=== PATIENT | male | born 1950 | race Caucasian/White ===

== ENCOUNTER 2023-08-06 18:14 | Inpatient (IN) | payer MEDICARE, OTHER, SELFPAY ==
[2023-08-06] VITALS (11 sets, daily range): BP systolic 126–200; BP diastolic 77–123; BMI 35.4
[2023-08-06] MEDS: DUONEB 3 ML INH (15:43)
[2023-08-06] MEDS: VENTOLIN NEBULES 7.5 MG INH (15:50)
[2023-08-06] MEDS: DECADRON 10 MG IV (15:50)
[2023-08-06 15:53] LABS: % Basophils 0.4 % (0-2); % Eosinophils 1.2 % (0-6); % Immature Granulocytes 0.5 % (0-0.5); % Lymphocytes 9.5 % (20.5-51.1); % Monocytes 7.9 % (1.7-9.3); % Neutrophils 80.5 % (42.2-75.2); Absolute Basophils 0.1 10^3/uL (0-0.2); Absolute Eosinophils 0.2 10^3/uL (0-0.7); Absolute Immature Granulocytes 0.1 10^3/uL (0-0.05); Absolute Lymphocytes 1.5 10^3/uL (1.2-3.4); Absolute Monocytes 1.3 10^3/uL (0.1-0.6); Absolute Neutrophils 13.1 10^3/uL (1.4-6.5); Hematocrit 48.5 % (39.0-52.0); Hemoglobin 16.4 g/dL (13.0-18.0); Mean Corp Hgb Conc. 33.8 g/dL (33.0-37.0); Mean Corpuscular Volume 88.8 fL (80.0-94.0); Mean Platelet Volume 10.3 fL (7.4-10.4); Nucleated Red Blood Cells % 0 % (-); Platelet Count 247 10^3/uL (130-400); Red Blood Cell Count 5.46 10^6/uL (4.70-6.10); Red Cell Dist. Width 13.5 % (11.5-14.5); White Blood Cell Count 16.3 10^3/uL (4.8-10.8)
--- NOTE | 2023-08-06 16:07 | ED.GENMED ---
History of Present Illness
General
Chief Complaint: Breathing Problem
Source: patient and spouse (ex)
Time Seen by Provider: 08/06/23 15:38
Travel History
Have you had any contact with someone who has COVID-19?: No
Do you have any symptoms of coronavirus? Fever > 100 degrees, chills, cough, shortness of breath, sore throat, loss of taste or smell, muscle aches, or headache?: No
History of Present Illness
History of Present Illness:
72-year-old male shortness of breath cough congestion. Progressive over 3 days. No fever. No pleuritic pain. Symptoms are moderate in nature.
Past History
Past History
ED Past Medical History: Arrthythmia and HTN
ED Past Surgical History: Tonsilectomy and Urological
Review of Systems
Review of Systems
All Other Systems: Not applicable
Constitutional: Denies fever
Respiratory: Reports cough; Denies hemoptysis
Cardiac: Denies chest pain or syncope
Phy Exam
Physical Exam
Physical Exam:
GENERAL: Alert and oriented. Moderate respiratory distress
EYE: Orbits normal.
NECK: Supple, no significant adenopathy.
ENT: Pharynx without erythema
CARDIAC: Irregular irregular. Tachycardic
LUNGS: Moderately breathless with speaking. Coarse cough at times. Diffuse expiratory wheezing and rhonchi. Poor airflow.
ABDOMEN: Soft, without focal tenderness or distention
NEUROLOGICAL: Alert and oriented , grossly non-focal
SKIN: Warm and dry, no rash or lesion, no discoloration, skin intact.
MUSCULOSKELETAL: No edema,no deformity.Good color
PSYCH: Normal and appropriate interaction.
Scores
Heart Failure Risk
Heart Failure Risk Score: Not Applicable
Course
Orders/Labs/Results
Orders:
Orders
08/06/23 Lunch
Cholesterol Lowering
At Your Request: Full Participation
Cholesterol Lowering: Sodium, 2 Gram
08/06/23 15:18
Electrocardiogram (*1) Urgent
Reason for Study: Shortness of Breath
EKG- Treatment ONCE
08/06/23 15:38
CXR Port [CR Chest Portable - 1 View] Urgent
Comment:
Reason For Exam: sob
Reason Study Needs to be Portable: Unable to Transport
08/06/23 15:42
BNP [NT-proBNP] Urgent
Complete Blood Count/With Diff Urgent
Comprehensive Metabolic Panel Urgent
Lipase Urgent
PTT Urgent
Troponin I Urgent
Ipratropium/Albuterol Sulfate [Duoneb] 3 ml .ROUTE .STK-MED ONE
08/06/23 15:43
Ipratropium/Albuterol Sulfate [Duoneb] 3 ml INH R NOW ONE
08/06/23 15:44
Cardiac Monitoring- Treatment ONCE
IV Insert/Care/Rem.- Treatment PRN
Albuterol Sulfate [Ventolin Nebules] 7.5 mg INH R NOW STA
Dexamethasone Sod Phosphate [Decadron] 10 mg IV NOW STA
O2 Therapy [RESP] Stat
Titrate/Wean O2 to maintain O2 sat greater than (%): 94
08/06/23 17:19
COVID-19 Antigen Urgent
Source: Nasal Swab
Blood Culture Q30M
TRES Source: Blood/Venous
Specimen Description:
Blood Culture Q30M
TRES Source: Blood/Venous
Specimen Description:
Influenza A+B Rapid Molecular Urgent
TRES Source: Nasal Swab
Specimen Description:
08/06/23 17:55
Admit/Transfer Patient As Directed
Co-Sign Provider:
Level of Care: Inpatient admission
Assign to:: IMU- Intermediate Care
Physician / Group: power/hospitalist
Diagnosis: afib/bronchitis
Reason for Hospitalization: afib/bronchitis
Expected length of stay greater than two midnights?: Yes
ELOS- Estimated Length of Stay in days: 4
I certify the patient meets the requirements for IP care: Yes
08/06/23 17:56
Code Status As Directed
Resuscitation Status: Full Code
08/06/23 18:00
Diltiazem 125 mg/125 ml Nss [Cardizem] 125 mg in 125 ml IV PER PROTOCOL
Initial dose in mg/hr, then titrate:: 5
Titrate to keep:: Heart rate 80-100 bpm
Titrate by mg/hr:: 5 mg/hr
Frequency of titrations (minutes):: 15
Maximum dose in mg/hr:: 15
08/06/23 18:28
Procalcitonin Routine
PCT Algorithmm Indication: Respiratory
08/06/23 19:00
Flush (0.9% Sodium Chloride) [Flush (Nss)] See Dose Instructions IV PER PROTOCOL
08/06/23 20:26
Acetaminophen [Tylenol] 650 mg PO Q4HPRN PRN
Apixaban [Eliquis] 5 mg PO BID
Atorvastatin [Lipitor] 20 mg PO QPM
Levalbuterol [Xopenex 0.63 mg Inhalant Solution] 0.63 mg INH R TID
08/06/23 20:26
CARDIOLOGY CONSULT Routine
Consulting Provider: Laith Castle
Was physician already notified: Yes
Activity As Directed
Activity Level: Out of Bed-Early Mobility
Pneumatic Compression Sleeves As Directed
Type: Knee high
Vital Signs As Directed
Frequency: Per unit guidelines
Xopenex Reason for Use As Directed
Reason for ordering Xopenex instead of Albuterol: afib RVR
DX Deep Vein Thrombosis Video Routine
08/06/23 22:00
Lisinopril [Zestril] 20 mg PO HS
08/07/23 06:00
Basic Metabolic Panel IN AM
Complete Blood Count/With Diff IN AM
Magnesium IN AM
08/07/23 08:00
Dexamethasone Sod Phosphate [Decadron] 6 mg IV Q12H
Abnormal Lab Results
08/06/23
15:42
WBC 16.3 H 10^3/uL
(4.8-10.8)
Abs Immat Gran (auto) 0.1 H 10^3/uL
(0-0.05)
Absolute Neuts (auto) 13.1 H 10^3/uL
(1.4-6.5)
Absolute Monos (auto) 1.3 H 10^3/uL
(0.1-0.6)
Neutrophils % 80.5 H %
(42.2-75.2)
Lymphocytes % 9.5 L %
(20.5-51.1)
Glucose 103 H mg/dl
(70-99)
08/06/23 15:42
08/06/23 15:42
Vital Signs
Initial and Last Documented VS:
Initial Vital Signs
Temp Pulse Resp Pulse Ox
98.8 F 108 16 91
08/06/23 15:15 08/06/23 15:15 08/06/23 15:15 08/06/23 15:15
Last Documented Vital Signs
Temp Pulse Resp BP Pulse Ox
98.7 F 83 15 141/104 93
08/06/23 20:05 08/06/23 21:13 08/06/23 21:13 08/06/23 20:01 08/06/23 21:40
*Radiology
Radiology exam reviewed: preliminary read by ED provider (Negative) and radiology read reviewed (Negative)
*Pulse Oximetry
Patient hypoxic: yes
*Agricultural Economics Teacher Interpretation
Rate: tachycardiac
Interpretation: abnormal
Heart Rate: 110
Rhythm: a-fib
*Critical Care Note
Total Time (30-74mins, 75-104mins- exclusive of procedures): Not Applicable
Update Note
Update Note:
Patient rechecked multiple times. Significant improvement with nebulizers.
ED Attending Note
-
Portions of this chart may have been created with voice recognition software.� Occasional wrong word or��sound alike� substitutions may have occurred due to the inherent limitations of voice recognition software.
Discharge Plan
Departure
Patient Disposition: Admit
Date of Disposition: 08/06/23
Time of Disposition: 17:12
Presentation/result/management discussed w/ accepting MD/DO: Hospitalist
Discharge Problem:
Respiratory distress, Severe refractory bronchitis, Atrial fibrillation
Interventions
Interventions:
*Risk Screen - Suicide Last Done: 08/06/23 20:15
*General Assessment Last Done: 08/06/23 16:00
*Neglect/Abuse Screening Last Done: 08/06/23 20:00
ED- Fall Risk Assessment Last Done: 08/06/23 15:57
*ED COVID-19 Vaccine History Last Done: 08/06/23 20:04
*Nursing Disposition Last Done: 08/06/23 19:59
ED- Cardiac Assessment Last Done: 08/06/23 15:57
ED- Pulmonary Assessment Last Done: 08/06/23 15:57
Discharge Date and Time
Discharge Date/Time: 08/06/23 20:29
[2023-08-06 16:09] LABS: APTT 28.3 Sec (23.4-35.0)
[2023-08-06 16:10] LABS: ALT (SGPT) 30 U/L (0-50); AST (SGOT) 34 U/L (17-59); Albumin 4.9 g/dl (3.5-5.0); Alkaline Phosphatase 72 U/L (38-126); Blood Urea Nitrogen 16 mg/dl (9-20); Calcium 9.6 mg/dl (8.4-10.2); Carbon Dioxide 29 mmol/L (22-30); Chloride 105 mmol/L (98-107); Glucose 103 mg/dl (70-99); Lipase 87 U/L (23-300); Sodium 142 mmol/L (135-145); Total Bilirubin 1.3 mg/dl (0.2-1.3); Total Protein 8.1 g/dl (6.3-8.2); eGFR > 60.00
[2023-08-06 16:21] LABS: NT-proBNP 767 pg/ml; Troponin I < 0.012 ng/ml
[2023-08-06 17:46] LABS: COVID-19 Antigen Negative (Negative)
--- NOTE | 2023-08-06 18:00 | HPS.HSE ---
Family Physician
-
Family Physician: Cassie Gonzalez PA-C
Chief Complaint
-
sob
History of Present Illness
72 male who presented with shortness of breath. Patient said he started feeling short of breath starting yesterday. Stating of having a cough with white sputum. Denies any sick contact. Lives alone. States of severe shortness of breath into
urgent care. Was recommended to come to the hospital. Patient said usually develops upper respiratory tract infection and then subsequently afterwards gets bronchitis. Usually improves with steroids. Denies any fevers or chills. Denies any
chest pain. Denies any nausea or vomiting. Denies any palpitations. States for the atrial fibrillation he follows up with Dr. Grady Peraza.
Medical History
Past Medical History
Past Medical History: Reports Other
Additional Past Medical History:
BPH s/p TURP
Persistent Afib
Hx of tobacco abuse
HLD
Obesity
Past Surgical History: Reports Other
Additional Past Surgical History:
TURP
Social History
Tobacco: Former Smoker (Smoked 1PPD for 30 years. )
Alcohol: None
Personal: Single
Family History
Family History: Not pertinent
Allergies / Home Medications
Allergies reflects when Allergies were last updated in [facility].
Home Medications with original date entered in [facility]
Allergy/Medication List:
Medications on admission are unable to be verified or confirmed at this time.
Review of Systems
-
History Source: Patient
A 12 point ROS was completed and negative except as noted: Yes
Physical Exam
Vital Signs
Vital Signs
Temp Pulse Resp BP Pulse Ox
98.8 F 108 16 200/120 91
08/06/23 15:15 08/06/23 15:15 08/06/23 15:15 08/06/23 15:18 08/06/23 15:15
Physical Exam
General: Well Developed, Well Nourished and No Apparent Distress
HEENT: NormoCephalic, Moist mucous membranes, Atraumatic and Oxygen
Respiratory: Wheezes
Cardiac: S1/S2, Irregular Rhythm and Tachycardia; No Murmur or Rub
GI: Soft, Non Tender, Non Distended and Normal Bowel Sounds; No Organomegaly
Rectal: Deferred by Provider
Musculoskeletal: No Clubbing, No Cyanosis and No Edema
Skin: No Rash
Neuro: Awake, Alert, Oriented, AO x 3, No Motor Deficits and Nonfocal/grossly intact
Psych: Calm
Laboratory Results
-
08/06/23 15:42
08/06/23 15:42
Laboratory Results
APTT 28.3 Sec (23.4-35.0) 08/06/23 15:42
Total Bilirubin 1.3 mg/dl (0.2-1.3) 08/06/23 15:42
AST 34 U/L (17-59) 08/06/23 15:42
ALT 30 U/L (0-50) 08/06/23 15:42
Alkaline Phosphatase 72 U/L (38-126) 08/06/23 15:42
Troponin I < 0.012 ng/ml 08/06/23 15:42
Lipase 87 U/L (23-300) 08/06/23 15:42
Impression/Plan
-
#Acute hypoxic respiratory insufficiency likely secondary bronchitis in the setting of viral URI
#Unclear if diagnosis of COPD
#History of severe tobacco abuse
Start patient on levo albuterol the setting of atrial fibrillation with RVR
Start patient on Decadron in the morning
Chest x-ray noted
Check procalcitonin to rule out secondary infection
COVID negative
Influenza negative
#Leukocytosis ?reactive
trend for now
CXR negative
sputum sample
check procal- If elevated start Rocephin/azithromycin
#Persistent atrial fibrillation with rapid ventricular response
Start patient on Cardizem drip
Restart Eliquis
Awaiting med rec for anticoagulation confirmation
Cardiology consultation
#Primary hypertension elevated in the setting of steroids
#HTN urgency
Started on Cardizem infusion
Lisinopril 20mg now home dose. May need uptitration
Clarify metoprolol regimen
#BPH status post TURP
Follows with urology as outpatient Dr. Hall
Monitor urinary output
#Obesity due to excess calories
DVT ppx-Eliquis
IMU
I spent a total of 78 minutes with the patient or on the floor. More than 50% of this time involved counseling and coordination of care.
[2023-08-06] MEDS: CARDIZEM 125 IV (18:19)
[2023-08-06 19:16] LABS: Procalcitonin < 0.05 ng/ml (0.0-0.25)
[2023-08-06] MEDS: TYLENOL 650 MG PO (19:29)
[2023-08-06] MEDS: LIPITOR 20 MG PO (20:53)
[2023-08-06] MEDS: ELIQUIS 5 MG PO (20:53)
[2023-08-06] MEDS: MUCINEX 600 MG PO (20:53)
[2023-08-06] MEDS: XOPENEX 0.63 MG INHALANT SOLUTION 0.630000000000000004 MG INH (21:08)
[2023-08-06] MEDS: ZESTRIL 20 MG PO (22:28)
[2023-08-07] VITALS (16 sets, daily range): BP systolic 138–192; BP diastolic 55–173; BMI 32.9
[2023-08-07] MEDS: TESSALON PERLES 200 MG PO (02:27)
[2023-08-07 04:40] LABS: % Basophils 0.1 % (0-2); % Immature Granulocytes 0.3 % (0-0.5); % Lymphocytes 3.4 % (20.5-51.1); % Neutrophils 93.2 % (42.2-75.2); Absolute Lymphocytes 0.4 10^3/uL (1.2-3.4); Absolute Monocytes 0.4 10^3/uL (0.1-0.6); Absolute Neutrophils 11.1 10^3/uL (1.4-6.5); Hematocrit 44.9 % (39.0-52.0); Hemoglobin 14.8 g/dL (13.0-18.0); Mean Corpuscular Hgb 29.9 pg (27.0-31.0); Mean Corpuscular Volume 90.7 fL (80.0-94.0); Mean Platelet Volume 10.3 fL (7.4-10.4); Nucleated Red Blood Cells % 0 % (-); Platelet Count 260 10^3/uL (130-400); Red Blood Cell Count 4.95 10^6/uL (4.70-6.10); Red Cell Dist. Width 13.4 % (11.5-14.5); White Blood Cell Count 11.9 10^3/uL (4.8-10.8)
[2023-08-07 05:06] LABS: Blood Urea Nitrogen 21 mg/dl (9-20); Calcium 9.8 mg/dl (8.4-10.2); Carbon Dioxide 27 mmol/L (22-30); Chloride 101 mmol/L (98-107); Estimated Creatinine Clearance 106 ml/min; Glucose 205 mg/dl (70-99); Magnesium 2.1 mg/dl (1.6-2.3); Potassium 4.4 mmol/L (3.5-5.1); Sodium 139 mmol/L (135-145); eGFR > 60.00
--- NOTE | 2023-08-07 05:48 | PTCARENOTE ---
Pt Aox3, VSS, SBP 160-170, Provider notified, no new orders at this time. Cardizem gtt stopped at 0300 due to heart rate 55-60. Pt is on 4 L NC with sats greater than 92%. Pt has frequent congestive cough, PRN Tessalon given. Sputum pending. Pt
offers no complaints at this time. Plan of care on going.
[2023-08-07] MEDS: MUCINEX 600 MG PO ×2 (07:26→20:27)
[2023-08-07] MEDS: ELIQUIS 5 MG PO ×2 (07:27→21:19)
[2023-08-07] MEDS: DECADRON 6 MG IV ×2 (07:27→20:27)
[2023-08-07] MEDS: XOPENEX 0.63 MG INHALANT SOLUTION 0.630000000000000004 MG INH ×3 (08:01→20:38)
--- NOTE | 2023-08-07 08:23 | PTCARENOTE ---
Pt Aox3, VSS, HTN noted. Cardizem gtt stopped at 0300 due to heart rate 55-60. Pt to room air. SpO2 currently 93%. Occassional productive cough cough. Sputum pending. Pt offers no complaints at this time. Plan of care on going.
[2023-08-07] MEDS: TOPROL XL 50 MG PO (09:10)
[2023-08-07] MEDS: TOPROL XL 25 MG PO ×2 (09:10→12:31)
[2023-08-07] MEDS: TYLENOL 650 MG PO (10:55)
--- NOTE | 2023-08-07 12:00 | W.PN.HOSP.TC ---
Addendum entered and electronically signed by João Curtis MD 08/07/23 12:08:
Procal negative. hold abx
Sputum sample in lab
blood culture in lab and pending
Original Note:
Today's Communication/Plan
-
Increase toprol
cont iv decadron
BC
tx to tele later today
Assessment / Plan
Assessment / Plan
#Acute hypoxic respiratory insufficiency likely secondary bronchitis in the setting of viral URI
#Unclear if diagnosis of COPD
#History of severe tobacco abuse
Start patient on levo albuterol the setting of atrial fibrillation with RVR
Start patient on Decadron 6mg q12h
May benefit from OP PFTs pending resolution of current event. High possibility of underlying COPD
Chest x-ray noted
Check procalcitonin to rule out secondary infection
COVID negative
Influenza negative
�
#Leukocytosis ?reactive
trend for now
CXR negative
sputum sample pending
improving. afebrile.
#Persistent atrial fibrillation with rapid ventricular response
s/p Cardizem drip
Restart Eliquis
Remains in afib. Rate improved around 80-99s.
Increase toprol to 100mg Daily starting tomm. Additional 25mg dose now.
Sees [facility] as outpatient
#Primary hypertension elevated in the setting of steroids
#HTN urgency
Lisinopril 20mg now home dose. May need uptitration
Increase toprol 100mg
#BPH status post TURP
Follows with urology as outpatient Dr. Hall
Monitor urinary output
#Obesity due to excess calories
DVT ppx-Eliquis
Tx to tele
Anticipated Discharge: 24 - 48 hours
Subjective/Interval History
-
Date of Service: August 07, 2023
HR slowed down
remains in afib
Objective Data
-
Labs:
Laboratory Results
08/07/23
04:30
WBC 11.9 H
Hgb 14.8
Hct 44.9
Plt Count 260
Sodium 139
Potassium 4.4
Chloride 101
Carbon Dioxide 27
BUN 21 H
Creatinine 0.8
Glucose 205 H
Calcium 9.8
Vital Signs:
Vital Signs
Temp Pulse Resp BP Pulse Ox
98.2 F 81 19 174/121 90
08/07/23 08:00 08/07/23 11:45 08/07/23 11:45 08/07/23 11:00 08/07/23 11:45
I&O
08/06/23 08/07/23 08/08/23
06:59 06:59 06:59
Intake Total 250 / 250 500 / 500
Output Total 475 / 475
Balance 250 / 250 25 / 25
Physical Exam
-
General: Well Developed and No Apparent Distress
HEENT: Normocephalic, Atraumatic and Moist Mucous Membranes
Respiratory: Wheezes (severe diffuse exp wheezing) and Other (decrease aeration)
Cardiac: Regular Rhythm and S1/S2; Negative Murmur, Rub or Gallop
GI: Soft, Nontender, Nondistended and Normal Bowel Sounds; Negative Organomegaly
Rectal: Deferred by Provider
Musculoskeletal: No Clubbing, No Cyanosis and No Edema
Skin: Negative Rash
Neuro: Awake, Alert, Oriented, AO x 3, No Motor Deficits and Nonfocal/Grossly Intact
Psych: Calm
Data Reviewed
-
Total Time Spent with Patient (in minutes): 55
[2023-08-07] MEDS: LIPITOR 20 MG PO (17:13)
[2023-08-07] MEDS: ELIQUIS PO ×2 (20:27→21:03)
[2023-08-07] MEDS: MELATONIN 5 MG PO (21:19)
[2023-08-07] MEDS: ZESTRIL 20 MG PO (21:19)
[2023-08-08] VITALS (8 sets, daily range): BP systolic 124–180; BP diastolic 70–129; O2SAT 93–96; BMI 32.9
[2023-08-08] MEDS: TESSALON PERLES 200 MG PO (03:40)
[2023-08-08] MEDS: TYLENOL 650 MG PO (03:47)
[2023-08-08] MEDS: XANAX 0.5 MG PO (03:48)
[2023-08-08 03:55] LABS: % Basophils 0.1 % (0-2); % Immature Granulocytes 0.6 % (0-0.5); % Lymphocytes 2.8 % (20.5-51.1); % Monocytes 2.7 % (1.7-9.3); % Neutrophils 93.8 % (42.2-75.2); Absolute Immature Granulocytes 0.1 10^3/uL (0-0.05); Absolute Lymphocytes 0.5 10^3/uL (1.2-3.4); Absolute Monocytes 0.5 10^3/uL (0.1-0.6); Absolute Neutrophils 16.1 10^3/uL (1.4-6.5); Hematocrit 44.9 % (39.0-52.0); Hemoglobin 15.3 g/dL (13.0-18.0); Mean Corp Hgb Conc. 34.1 g/dL (33.0-37.0); Mean Corpuscular Hgb 29.7 pg (27.0-31.0); Mean Corpuscular Volume 87.2 fL (80.0-94.0); Mean Platelet Volume 10.5 fL (7.4-10.4); Nucleated Red Blood Cells % 0 % (-); Platelet Count 266 10^3/uL (130-400); Red Blood Cell Count 5.15 10^6/uL (4.70-6.10); Red Cell Dist. Width 13.3 % (11.5-14.5); White Blood Cell Count 17.2 10^3/uL (4.8-10.8)
[2023-08-08 04:17] LABS: Blood Urea Nitrogen 25 mg/dl (9-20); Carbon Dioxide 26 mmol/L (22-30); Chloride 103 mmol/L (98-107); Estimated Creatinine Clearance 102 ml/min; Glucose 185 mg/dl (70-99); Potassium 4.5 mmol/L (3.5-5.1); Sodium 135 mmol/L (135-145); eGFR > 60.00
--- NOTE | 2023-08-08 06:30 | PTCARENOTE ---
Pt Aox3, VSS, BP elevated. Pt has moist productive cough, inspiratory and expiratory wheezings through out, Scheduled nebs. PRN Tylenol for headache, Tensilon pearls for cough. Pt having trouble sleeping one time dose of melatonin, which did not
work. Pt received 1x dose of Xanax for further sleep promotion. Plan of care on going.
[2023-08-08] MEDS: XOPENEX 0.63 MG INHALANT SOLUTION 0.630000000000000004 MG INH (07:25)
[2023-08-08] MEDS: ELIQUIS 5 MG PO (08:03)
[2023-08-08] MEDS: TOPROL XL 100 MG PO (08:03)
[2023-08-08] MEDS: MUCINEX 600 MG PO (08:03)
[2023-08-08] MEDS: DECADRON 6 MG IV (08:04)
--- NOTE | 2023-08-08 08:24 | W.PN.HOSP.TC ---
Today's Communication/Plan
-
home O2 testing
possible DC later today
Assessment / Plan
Assessment / Plan
#Acute hypoxic respiratory insufficiency likely secondary bronchitis in the setting of viral URI
#Unclear if diagnosis of COPD
#History of severe tobacco abuse
Start patient on levo albuterol the setting of atrial fibrillation with RVR
Start patient on Decadron 6mg q12h --> transition to oral prednisone tomorrow
May benefit from OP PFTs pending resolution of current event. High possibility of underlying COPD
Chest x-ray noted
Check procalcitonin to rule out secondary infection
COVID negative
Influenza negative
�
#Leukocytosis ?reactive and now likely 2/2 steroids
trend for now
CXR negative
sputum sample pending
improving. afebrile.
#Persistent atrial fibrillation with rapid ventricular response
s/p Cardizem drip
Restart Eliquis
Remains in afib. Rate improved around 80-99s.
Increase toprol to 100mg Daily starting today - patient tolerating well
Sees [facility] as outpatient
#Primary hypertension elevated in the setting of steroids
#HTN urgency
Lisinopril 20mg now home dose. May need uptitration
Increase toprol 100mg
#BPH status post TURP
Follows with urology as outpatient Dr. Hall
Monitor urinary output
#Obesity due to excess calories
DVT ppx-Eliquis
Tx to tele
Anticipated Discharge: Within 24 hours
Subjective/Interval History
-
Date of Service: August 08, 2023
feeling much better
off oxygen
hoping to go home today
Objective Data
-
Labs:
Laboratory Results
08/08/23 08/08/23
03:31 03:32
WBC 17.2 H
Hgb 15.3
Hct 44.9
Plt Count 266
Sodium 135
Potassium 4.5
Chloride 103
Carbon Dioxide 26
BUN 25 H
Creatinine 0.8
Glucose 185 H
Calcium 10.0
Vital Signs:
Vital Signs
Temp Pulse Resp BP Pulse Ox
97.6 F 83 21 149/97 92
08/08/23 03:49 08/08/23 08:03 08/08/23 07:29 08/08/23 08:03 08/08/23 07:29
I&O
08/07/23 08/08/23 08/09/23
06:59 06:59 06:59
Intake Total 250 / 250 980 / 980
Output Total 2024
Balance 250 / 250 -1045 / -1045
Review of Systems
-
History Source: Patient
All other systems: Reviewed and negative
Physical Exam
-
General: Well Developed and No Apparent Distress
HEENT: Normocephalic, Atraumatic and Moist Mucous Membranes
Respiratory: Wheezes (severe diffuse exp wheezing) and Other (decrease aeration)
Cardiac: Regular Rhythm and S1/S2; Negative Murmur, Rub or Gallop
GI: Soft, Nontender, Nondistended and Normal Bowel Sounds; Negative Organomegaly
Rectal: Deferred by Provider
Musculoskeletal: No Clubbing, No Cyanosis and No Edema
Skin: Negative Rash
Neuro: Awake, Alert, Oriented, AO x 3, No Motor Deficits and Nonfocal/Grossly Intact
Psych: Calm
Data Reviewed
-
Diagnostic Radiology: Report Reviewed by me
Labs: Labs Reviewed by me
--- NOTE | 2023-08-08 11:40 | PTCARENOTE ---
Updated assessment and vital signs ongoing and as documented. Ambulation with respiratory cares team. Ambulate with PCT and RN patient tolerated very well. Follow up with Hospitalist team. Planning for discharge. Start discharge teaching and
planning. Patient presently resting in chair. No complaints post ambulation. Will await discharge plan of cares from attending
--- NOTE | 2023-08-08 11:46 | W.DS.TRANS ---
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
-
Discharge Instructions:
Sleep Apnea Risk High
Discharge Diagnosis/Procedures chronic obstructive pulmonary disease, acute
exacerbation
Diet Regular
Activity As tolerated
Driving Restrictions As prior to admission
Bathing Restrictions None
Instructions:
Stand-Alone Forms:
Changes to Home Medications: Yes
Discharge Medications:
DC Medications w/original date entered in [facility]
lisinopril 20 mg tablet 20 mg PO .SEE BELOW Blood Pressure 02/16/21
apixaban 5 mg tablet (Eliquis) 5 mg PO BID Blood Clot Prevention/Tx 08/06/23
atorvastatin 20 mg tablet 20 mg PO .SEE BELOW High Cholesterol 08/06/23
fluticasone propionate 50 mcg/actuation nasal spray,suspension 1 spray intranasal BID PRN congestion 08/06/23
famotidine 20 mg tablet (Pepcid) 20 mg PO DAILY #10 tabs 08/08/23
guaifenesin 600 mg tablet, extended release 12 hr 600 mg PO Q12 #0 tabs 08/08/23
levalbuterol tartrate 45 mcg/actuation aerosol inhaler 2 inh inhalation Q6H PRN shortness of breath or wheezing #15 grams 08/08/23
metoprolol succinate 50 mg tablet,extended release 24 hr 100 mg PO DAILY #60 tabs 08/08/23
prednisone 10 mg tablet 10 mg PO DAILY #20 tabs 08/08/23
Home Medication Changes
Your Metoprolol dosing is increased to 100mg daily. A new script was sent.
You are prescribed a steroid taper. Take 40mg (4 tabs) x 2 days; 30mg (3 tabs) x 2 days; 20mg (2 tabs) x 2 days; 10mg (1 tab) x 2 days then stop.
Take Pepcid daily while on steroids (to protect the lining of the stomach as you are also on Eliquis).
You are prescribed Levalbuterol as needed for wheezing. This is prescribed instead of albuterol because it has less of an effect on heart rate.
Please follow up with Pulmonary on discharge for formal pulmonary function testing.
Pending Results: No
[2023-08-08] MEDS: PREVNAR 20 0.5 ML IM (12:12)
--- NOTE | 2023-08-08 12:23 | PTCARENOTE ---
Updated discharge planning. Dr Mcdonald discharge orders reviewed with patient. Pneumovax given and reviewed with patient. Patient asking questions related to shingles vaccine. Information provided. Patient vital signs documented.
--- NOTE | 2023-08-08 12:38 | CM ---
CM following re: discharge planning.
Reviewed pt's chart, met with pt.
Pt is a 72 year old male, admitted with primary dx of A-Fib/Bronchitis
Pt reports he lives alone in a 2SH, 2 steps to enter, has 2 supportive children. 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 No DME, VN or SNF history.
Discharge order is noted. Pt is aware, expressed his agreement with discharge. IMM reviewed, placed in chart, pt has a copy. Pt stated his daughter will transport home
PCP: Cassie Kothari.
Pharmacy: [facility]
D/C plan: home no needs. Daughter to transport.
--- NOTE | 2023-08-08 13:48 | W.DCSUMMARY ---
Discharge Summary
Discharge Data
Date of Admission: 08/06/23
Date of Discharge: 08/08/23
-
Pending Results: No
Hospital Course
Discharging Physician : Dr. Rosy Mcdonald
Disposition : Home
Primary care physician : Dr. Cassie Gonzalez
Principal Discharge diagnosis : reactive airway disease; acute viral bronchitis
Hospital Course :
Ms. Keagan Dick is a 72 yo man with hx BPH s/p TURP, persistent atrial fibrillation, hx tobacco use, HLD presents to the ER with increasing shortness of breath in setting of recent URI. Triage vitals significant for pulse 108, afib. SpO2 91%.
He was wheezing on exam. Procal negative. Patient admitted to medicine for treatment of acute bronchitis, continued on steroids and nebulizers. He was given levalbuterol given fast heart rates in setting of afib. Patient improved significantly
over past 48 hours. He ambulated prior to discharge without need for oxygen. He is prescribed a prednisone taper, levalbuterol. He is prescribed Pepcid for GI PPx while on steroids given he is on Eliquis. Patient is referred to Pulmonary on
discharge for PFT's.
Increased WBC on day of discharge likely 2/2 steorids as clinically patient is much improved.
Regarding afib, with fast heart rates his metoprolol dosing was increased to 100mg daily. Patient tolerated this dose well (with HR's 70's prior to discharge). He was eager for discharge home. He is told to follow up with his PCP within next week.
Time spent on discharge was 35 minutes.
Important imaging findings :
CXR
IMPRESSION:
No acute cardiopulmonary process.
Procedure findings :
Discharge Plan
-
Patient Disposition: Home (Routine Discharge)
Discharge Diagnosis/Procedures: chronic obstructive pulmonary disease, acute exacerbation
Diet: Regular
Activity: As tolerated
Driving Restrictions: As prior to admission
Bathing Restrictions: None
Referrals:
Jyothi Kaba MD [Active] - in three to four weeks (for pulmonary function testing )
Cassie Gonzalez PA-C [Family Provider] - in less than 1 week
Additional Discharge Medication Instructions: Your Metoprolol dosing is increased to 100mg daily. A new script was sent.
You are prescribed a steroid taper. Take 40mg (4 tabs) x 2 days; 30mg (3 tabs) x 2 days; 20mg (2 tabs) x 2 days; 10mg (1 tab) x 2 days then stop.
Take Pepcid daily while on steroids (to protect the lining of the stomach as you are also on Eliquis).
You are prescribed Levalbuterol as needed for wheezing. This is prescribed instead of albuterol because it has less of an effect on heart rate.
Please follow up with Pulmonary on discharge for formal pulmonary function testing.
Prescriptions:
New
metoprolol succinate 50 mg Tablet Extended Release 24 Hr
100 mg PO DAILY Qty: 60 0RF
guaifenesin 600 mg Tablet Extended Release 12hr
600 mg PO Q12 Qty: 0 0RF
prednisone 10 mg tablet
10 mg PO DAILY Qty: 20 0RF
Rx Instructions:
Take 40mg x 2 days; 30mg x 2 days; 20mg x 2 days; 10mg x 2 days then stop
levalbuterol tartrate 45 mcg/actuation HFA aerosol inhaler
2 inh inhalation Q6H PRN (Reason: shortness of breath or wheezing) Qty: 15 0RF
famotidine [Pepcid] 20 mg tablet
20 mg PO DAILY Qty: 10 0RF
Continued
lisinopril 20 MG tablet
20 mg PO .SEE BELOW
Patient Comments:
08/06/2023, pt. unsure if this is morning or evening med.
atorvastatin 20 mg Tablet
20 mg PO .SEE BELOW
Patient Comments:
08/06/2023, pt. unsure if this is morning or evening med.
fluticasone propionate 50 mcg/actuation [place],Suspension
1 spray INTRANASAL BID PRN (Reason: congestion)
Eliquis 5 mg Tablet
5 mg PO BID
Discontinued
metoprolol succinate [Toprol XL] 50 MG tablet extended release 24 hr
50 mg PO DAILY
Rx Instructions:
08/06/2023, take with 25 mg for a total of 75 mg.
metoprolol succinate [Toprol XL] 25 MG tablet extended release 24 hr
25 mg PO BID
Dayquil liquid
1 dose PO DAILYPRN PRN (Reason: cough)
Discharge Orders:
Discharge Patient (As Directed); Ordered 08/08/23
Ordered By: Rosy Mcdonald
Discharge Date and Time
Discharge Date/Time: 08/08/23 12:29
[2023-08-08 19:42] LABS: Hepatitis C Antibody Negative (Negative)
== END 2023-08-08 12:29 | disposition home or self-care (01) | DRG 191 ==
LOC: ICU 18:14
PROVIDERS: ADMITTING PHYSICIAN Hospitalist; ATTENDING PHYSICIAN Student in an Organized Health Care Education/Training Program; EMERGENCY PHYSICIAN Emergency Medicine; FAMILY PHYSICIAN Physician Assistant
PROC: 3E0234Z Introduction of Serum, Toxoid and Vaccine into Muscle, Percutaneous Approach (ICD-10-PCS; 2023-08-08)
DX: J44.0 Chronic obstructive pulmonary disease with (acute) lower respiratory infection (principal); I48.19 Other persistent atrial fibrillation; J44.1 Chronic obstructive pulmonary disease with (acute) exacerbation; J20.9 Acute bronchitis, unspecified; I15.8 Other secondary hypertension; R06.03 Acute respiratory distress; E78.5 Hyperlipidemia, unspecified; E66.09 Other obesity due to excess calories; R09.02 Hypoxemia; R06.89 Other abnormalities of breathing; I16.0 Hypertensive urgency; T38.0X5A Adverse effect of glucocorticoids and synthetic analogues, initial encounter; D72.829 Elevated white blood cell count, unspecified; N40.0 Benign prostatic hyperplasia without lower urinary tract symptoms; Z60.2 Problems related to living alone; Z90.79 Acquired absence of other genital organ(s); Z87.891 Personal history of nicotine dependence; Z68.32 Body mass index [BMI] 32.0-32.9, adult; Z79.01 Long term (current) use of anticoagulants; Z23 Encounter for immunization; Z11.52 Encounter for screening for COVID-19
CPT/HCPCS: 71045; 80048; 80053; 83690; 83735; 83880; 84145; 84484; 85025; 85730; 86803; 87040; 87070; 87205; 87502; 87811; 90677; 93005; 94640; 94644; 96365; 96375; 99285; G0009

== ENCOUNTER → 2025-02-28 09:00 | Outpatient (REF) | payer OTHER, SELFPAY | LOC: PAVMRI 09:00 | PROVIDERS: ATTENDING PHYSICIAN Physical Medicine & Rehabilitation; FAMILY PHYSICIAN Physician Assistant | DX: M54.16 Radiculopathy, lumbar region (principal) | CPT/HCPCS: 72148 ==

== ENCOUNTER → 2025-04-04 09:05 | Outpatient (REF) | payer OTHER, SELFPAY | LOC: RCS 09:05 | PROVIDERS: ATTENDING PHYSICIAN Physical Medicine & Rehabilitation; FAMILY PHYSICIAN Physician Assistant | DX: Z01.818 Encounter for other preprocedural examination (principal) | CPT/HCPCS: 93005 ==